=== PATIENT | female | born 1960 | race Caucasian/White ===

== ENCOUNTER 2016-08-05 10:29 | Emergency (ER) | END 2016-08-05 13:55 | disposition home or self-care (01) | DX: R10.11 Right upper quadrant pain (principal); K59.00 Constipation, unspecified; K76.0 Fatty (change of) liver, not elsewhere classified; I10 Essential (primary) hypertension; E11.9 Type 2 diabetes mellitus without complications; R11.10 Vomiting, unspecified; Z79.84 Long term (current) use of oral hypoglycemic drugs | CPT/HCPCS: 36415; 76705; 80053; 81003; 82962; 83690; 85025; 96374; 96375; J2270; J2405; Z7502 ==

== ENCOUNTER 2016-09-22 11:55 | Emergency (ER) | payer OTHER ==
[~2016-09-22] VITALS: Wt 80.0 kg
[~2016-09-22 11:55] MED LIST: ATOR20TA38 PO; IBUP-1542 PO; METF-382 PO; POLY17PO6 PO
[2016-09-22] MEDS ORDERED: ONDANSETRON 4 MG INJ IV STA (12:19)
[2016-09-22] MEDS ORDERED: morphine 4 MG/ML VIAL IV STA (12:19)
[2016-09-22] MEDS ORDERED: SOD CHLORIDE 0.9% 1,000 ML IV STA (12:19)
[2016-09-22] MEDS ORDERED: FAMOTIDINE 20 MG INJ IV STA (12:19)
[2016-09-22] MEDS ORDERED: KETOROLAC 30 MG INJ IV STA (12:31)
[2016-09-22 12:44] LABS: ADD UMIC YES; URINE BILIRUBIN (Dip) NEGATIVE (NEGATIVE); URINE BLOOD (Dip) 2+ (NEGATIVE); URINE COLOR LT. YELLOW (YELLOW); URINE GLUCOSE (Dip) NEGATIVE (NEGATIVE); URINE KETONES (Dip) NEGATIVE (NEGATIVE); URINE LEUKOCYTE ESTERASE (Dip) NEGATIVE (NEGATIVE); URINE NITRITE (Dip) NEGATIVE (NEGATIVE); URINE TOTAL PROTEIN (Dip) NEGATIVE (NEGATIVE); URINE UROBILINOGEN (Dip) 0.2 E.U./dL (0.1-1.0)
[2016-09-22 12:45] LABS: ADD SCAN DIFF NO
[2016-09-22 12:59] LABS: BASOPHILS % 0.1 % (0.0-2.0); HEMATOCRIT 41.4 % (37.0-47.0); LYMPHOCYTES # 1.4 10^3/ul (0.8-2.9); LYMPHOCYTES % 14.7 % (15.0-51.0); MEAN CORPUSCULAR HEMOGLOBIN 24.9 pg (29.0-33.0); MEAN CORPUSCULAR HGB CONC 31.4 g/dl (32.0-37.0); MEAN CORPUSCULAR VOLUME 79.2 fl (82.0-101.0); MEAN PLATELET VOLUME 9.2 fl (7.4-10.4); MONOCYTE # 0.5 10^3/ul (0.3-0.9); NEUTROPHIL # 7.8 10^3/ul (1.6-7.5); NEUTROPHILS % 79.8 % (39.0-77.0); PLATELET COUNT 278 10^3/UL (140-415); RED BLOOD COUNT 5.23 10^6/ul (4.20-5.40); RED CELL DISTRIBUTION WIDTH 15.3 % (11.5-14.5); WHITE BLOOD COUNT 9.8 10^3/ul (4.8-10.8)
[2016-09-22 13:04] LABS: ALBUMIN/GLOBULIN RATIO 1.25; BILIRUBIN,INDIRECT 0.4 mg/dl (0-1.1); BILIRUBIN,TOTAL 0.4 mg/dl (0.2-1.3); CREATININE 0.85 mg/dl (0.44-1.00); TOTAL PROTEIN 7.2 g/dl (6.1-8.1)
[2016-09-22 13:05] LABS: CALCIUM 9.2 mg/dl (8.4-10.2)
[2016-09-22 13:25] LABS: SQUAMOUS EPITHELIAL CELL,UR FEW; URINE RBCS 25-50 /HPF (0)
--- NOTE | 2016-09-22 13:38 | RADRPT ---
PROCEDURE: CT Abdomen and Pelvis without contrast. CLINICAL INDICATION: Right lower quadrant pain TECHNIQUE: CT of the abdomen and pelvis was performed on a multi-detector scanner without IV contr ast. Coronal and sagittal images were reformatted from the axial data set. One or more of the foll owing dose reduction techniques were used: automated exposure control, adjustment of the mA and/or kV according to patient size, use of iterative reconstruction technique. CTDI = 19.57 mGy. DLP = 12 30.4 mGy-cm. COMPARISON: Ultrasound, 08/05/2016 FINDINGS: CT abdomen: The lung bases are clear. The heart size is normal, without pericardial effusion. Hepatic fatty in filtration is noted, without evidence of focal mass. Gallbladder, biliary tree, pancreas, spleen, a drenal glands and left kidney are unremarkable. Obstructive 3 mm calculus is identified at the righ t UVJ, causing mild to moderate hydroureteronephrosis and perinephric edema. The stomach is partial ly collapsed, but appears grossly unremarkable. The aorta is of normal caliber. There is no retroperitoneal lymphadenopathy. The nunu hepatis reg ion is clear. CT pelvis: No bowel obstruction, free intraperitoneal air or abscess is identified. The appendix is well visua lized and normal. Scattered colonic diverticula are seen without diverticulitis. There is no evide nce of colitis. Urinary bladder, uterus and adnexa are grossly unremarkable. No pelvic mass, free fluid or lymphadenopathy is identified. The surrounding osseous structures are unremarkable. No osteolytic or osteoblastic lesion is detect ed. IMPRESSION: 1. Obstructive 3 mm calculus is identified at the right UVJ, causing mild to moderate hydroureteron ephrosis and perinephric edema. 2. Hepatic steatosis is noted. 3. Normal appendix. 4. No mass, lymphadenopathy, or focal acute inflammatory process is identified. RPTAT: EE .Ronald Thompson MD, Date Time Electronically viewed and signed by .Ronald Thompson MD, MD on 09/22/2016 13:38 .R/
--- NOTE | 2016-09-22 13:45 | ERD ---
ER Documentation Chief Complaint Date/Time DATE: 09/22/16 TIME: 13:42 Chief Complaint LOWER ABD PAIN WITH NAUSEA AND VOMITING AND DYSURIA FOR FEW DAYS HPI This is a 46-year-old female who presents to the emergency room for evaluation of abdominal pain. The patient states that she has had right-sided abdominal pain for about 3 days and she is having mild painful urination associated with this as well. She states that she has been feeling nauseous but denies any vomiting. The patient localizes the pain to the right portion of the abdomen and states that she has mild radiation into the groin. The patient denies any relieving factors for her pain and came to the emergency room today for evaluation. ROS All systems reviewed and are negative except as per history of present illness. Medications Home Meds Active Scripts Polyethylene Glycol* (Miralax*) 17 Gm Powd.pack, 17 GM PO DAILY, #7 Prov:IMTIAZ PERSAUD MD 08/05/16 Ibuprofen* (Motrin*) 600 Mg Tab, 600 MG PO Q6H Y for PAIN AND OR ELEVATED TEMP, #30 TAB Prov:IMTIAZ PERSAUD MD 08/05/16 Reported Medications Atorvastatin Calcium* (Atorvastatin Calcium*) 20 Mg Tablet, 20 MG PO QHS, #30 TAB 08/05/16 Metformin Hcl* (Metformin Hcl*) 500 Mg Tablet, 500 MG PO WITH BREAKFAST DINNE, # 30 TAB 08/05/16 Allergies Allergies: Coded Allergies: No Known Allergy (Unverified , 08/05/16) PMhx/Soc Hx Cardiac Disorders: Yes (HTN) Hx Miscellaneous Medical Probl: Yes (DM, B/G 234) Hx Alcohol Use: No Hx Substance Use: No Hx Tobacco Use: No Smoking Status: Never smoker Physical Exam Vitals Vital Signs Date Time Temp Pulse Resp B/P Pulse Ox O2 Delivery O2 Flow Rate FiO2 09/22/16 11:58 98.8 68 20 239/105 99 Physical Exam INITIAL VITAL SIGNS: Reviewed by me GENERAL: The patient is well developed and appropriate for usual state of health in no apparent distress HEENT: Pupils equal, round, and reactive to light. EOMI. There is no scleral icterus. NECK: C-spine is soft and supple, there is no meningismus. There is no cervical lymphadenopathy. LUNGS: Clear to auscultation bilaterally. There are no rales, wheezes or rhonchi. HEART: Regular rate and rhythm, no murmurs, clicks, rubs or gallops. ABDOMEN: Right-sided CVAT, right lower quadrant tenderness to palpation, otherwise soft, non-tender, non-distended. There are bowel sounds in all four quadrants. No rebound or guarding. EXTREMITIES: There is no peripheral cyanosis or edema. No focal swelling or erythema. NEUROLOGICAL: The patient moves all four extremities with 5/5 strength. Cranial nerves II - XII are intact. Normal gait. Alert and oriented SKIN: There is no apparent rash or petechiae. HEME/LYMPHATIC: There is no evidence of excessive bruising or lymphedema. PSYCHIATRIC: The patient does not appear anxious or depressed. Result Diagram: 09/22/16 1235 09/22/16 1235 Results 24 hrs Laboratory Tests Test 09/22/16 12:12 09/22/16 12:35 Urine Bilirubin NEGATIVE Urine Clarity CLEAR Urine Color LT. YELLOW Urine Glucose NEGATIVE% Urine Hemoglobin 2+ Urine Ketones NEGATIVE Urine Leukocyte Esterase NEGATIVE Urine Microscopic RBC 25-50/HPF Urine Microscopic WBC 0-2/HPF Urine Nitrite NEGATIVE Urine Specific Snyder 1.020 Urine Squamous Epithelial Cells FEW Urine Total Protein NEGATIVE Urine Urobilinogen 0.2 E.U./dL Urine pH 6.0 Alanine Aminotransferase (ALT/SGPT) 36IU/L Albumin 4.0g/dl Albumin/Globulin Ratio 1.25 Alkaline Phosphatase 90IU/L Anion Gap 16 Aspartate Amino Transf (AST/SGOT) 24IU/L Basophils # 0.010^3/ul Basophils % 0.1% Blood Urea Nitrogen 14mg/dl Calcium Level 9.2mg/dl Carbon Dioxide Level 26mmol/L Chloride Level 104mmol/L Creatinine 0.85mg/dl Direct Bilirubin 0.00mg/dl Eosinophils # 0.010^3/ul Eosinophils % 0.0% Globulin 3.20g/dl Glucose Level 129mg/dl Hematocrit 41.4% Hemoglobin 13.0g/dl Indirect Bilirubin 0.4mg/dl Lipase 68U/L Lymphocytes # 1.410^3/ul Lymphocytes % 14.7% Mean Corpuscular Hemoglobin 24.9pg Mean Corpuscular Hemoglobin Concent 31.4g/dl Mean Corpuscular Volume 79.2fl Mean Platelet Volume 9.2fl Monocytes # 0.510^3/ul Monocytes % 5.0% Neutrophils # 7.810^3/ul Neutrophils % 79.8% Nucleated Red Blood Cells # 0.010^3/ul Nucleated Red Blood Cells % 0.0/100WBC Platelet Count 54115^3/UL Potassium Level 4.0mmol/L Red Blood Count 5.2310^6/ul Red Cell Distribution Width 15.3% Sodium Level 142mmol/L Total Bilirubin 0.4mg/dl Total Protein 7.2g/dl White Blood Count 9.810^3/ul Current Medications Medications (Trade) Dose Ordered Sig/Isauro Route PRN Reason Start Time Stop Time Status Last Admin Dose Admin Sodium Chloride (NS) 1,000 ml @ 1,000 mls/hr Q1H STAT IV 09/22/16 12:19 09/22/16 13:18 DC 09/22/16 12:34 Morphine Sulfate (morphine) 4 mg ONCE STAT IV 09/22/16 12:19 09/22/16 12:32 DC Ondansetron HCl (Zofran Inj) 4 mg ONCE STAT IV 09/22/16 12:19 09/22/16 12:22 DC 09/22/16 12:35 Famotidine (Pepcid Iv) 20 mg ONCE STAT IV 09/22/16 12:19 09/22/16 12:22 DC 09/22/16 12:34 Ketorolac Tromethamine (Toradol) 30 mg ONCE STAT IV 09/22/16 12:31 09/22/16 12:32 DC 09/22/16 12:35 Procedures/MDM CT abdomen pelvis without: 1. Obstructive 3 mm calculus is identified at the right UVJ, causing mild to moderate hydroureteronephrosis and perinephric edema. 2. Hepatic steatosis is noted. 3. Normal appendix. 4. No mass, lymphadenopathy, or focal acute inflammatory process is identified. This 46-year-old female presents to the emergency room for evaluation of right- sided abdominal pain did have CVAT on my examination mild right lower quadrant tenderness to palpation. Lab work was obtained including a urinalysis. Urinalysis did show blood in his CAT scan was obtained to rule out kidney stones versus appendicitis. CT of the abdomen pelvis did show an obstructive 3 mm calculi in the right UVJ. The patient does have mild perinephric edema, however she is afebrile, no bacteria in the urine, no elevation in her white blood cell count or creatinine. Patient was given Toradol in the emergency room with a moderate relief of her pain. She was also given 1 L of fluid and Zofran. The patient is hemodynamically stable at this time and will be discharged home with a prescription for Buc[place]e, Flomax, and Zofran with outpatient urology referral. The patient is okay the plan of care and advised to return to the ER immediately if she were to develop any fevers or worsening pain. Departure Diagnosis: Primary Impression: Ureterolithiasis Additional Impression: Right flank pain Condition: Stable BANG GONZALEZ DO Sep 22, 2016 13:44
[2016-09-22] MEDS ORDERED: HYDR-906 PO (13:46)
[2016-09-22] MEDS ORDERED: TAMS-14 PO (13:46)
[2016-09-22] MEDS ORDERED: ONDA4TAB8 PO (13:47)
[2016-09-22 14:42] VITALS: BP 163/75; PULSE 70; RESP 18; TEMP 97.8
== END 2016-09-22 14:44 | disposition home or self-care (01) ==
LOC: E/R 11:55
DX: N20.1 Calculus of ureter (principal); I10 Essential (primary) hypertension; E11.9 Type 2 diabetes mellitus without complications; R11.0 Nausea; Z79.84 Long term (current) use of oral hypoglycemic drugs
CPT/HCPCS: 36415; 74176; 80053; 81001; 83690; 85025; 96361; 96374; 96375; J1885; J2405; J7030; Z7502; Z7610; 81003